=== PATIENT | female | born 1955 ===

== ENCOUNTER 2020-03-02 10:00 | Outpatient (CLI) | payer OTHER | END 2020-03-02 10:13 | disposition home or self-care (01) | LOC: RAD 10:00 | PROVIDERS: ATTEND Family Medicine | DX: M25.562 Pain in left knee (principal) ==

== ENCOUNTER 2021-12-19 12:04 | Outpatient (CLI) | payer OTHER | END 2021-12-19 12:06 | disposition home or self-care (01) | LOC: RAD 12:04 | PROVIDERS: ATTEND Family Medicine | DX: M70.60 Trochanteric bursitis, unspecified hip (principal) ==

== ENCOUNTER 2022-01-05 14:56 | Outpatient (CLI) | payer OTHER | END 2022-01-05 15:02 | disposition home or self-care (01) | LOC: RAD 14:56 | PROVIDERS: ATTEND Family Medicine | DX: S20.211D Contusion of right front wall of thorax, subsequent encounter (principal); R07.82 Intercostal pain ==

== ENCOUNTER 2022-02-09 11:35 | Outpatient (CLI) | payer OTHER | END 2022-02-09 11:41 | disposition home or self-care (01) | LOC: RAD 11:35 | PROVIDERS: ATTEND Family Medicine | DX: Z86.16 Personal history of COVID-19 (principal) ==

== ENCOUNTER 2022-03-03 11:05 | Outpatient (CLI) | payer OTHER | END 2022-03-03 11:07 | disposition home or self-care (01) | LOC: TOM 11:05 | PROVIDERS: ATTEND Internal Medicine Pulmonary Disease | DX: J45.41 Moderate persistent asthma with (acute) exacerbation (principal); U09.9 Post COVID-19 condition, unspecified; R06.02 Shortness of breath ==

== ENCOUNTER 2023-12-13 14:12 | Outpatient (CLI) | payer OTHER | END 2023-12-13 14:14 | disposition home or self-care (01) | LOC: NUCLEAR 14:12 | PROVIDERS: ATTEND Family Medicine | DX: M85.80 Other specified disorders of bone density and structure, unspecified site (principal); M81.0 Age-related osteoporosis without current pathological fracture ==

== ENCOUNTER 2024-01-24 10:24 | Outpatient (CLI) | payer OTHER | END 2024-01-24 10:27 | disposition home or self-care (01) | LOC: RAD 10:24 | PROVIDERS: ATTEND Family Medicine | DX: M25.551 Pain in right hip (principal) ==

== ENCOUNTER 2025-01-04 14:07 | Outpatient (CLI) | payer OTHER | END 2025-01-04 14:11 | disposition home or self-care (01) | LOC: RAD 14:07 | DX: M15.8 Other polyosteoarthritis (principal) ==